=== PATIENT | male | born 1990 | race Caucasian/White ===

== ENCOUNTER 2018-10-08 21:36 | Emergency (ER) | payer OTHER ==
[~2018-10-08] VITALS: Ht 172.7 cm; Wt 92.5 kg
[2018-10-08 21:54] VITALS: BP 140/103; Ht 172.7 cm; Wt 92.5 kg
== END 2018-10-08 23:57 | disposition left against medical advice (07) ==
LOC: ED 21:36
DX: Z53.21 Procedure and treatment not carried out due to patient leaving prior to being seen by health care provider (principal)

== ENCOUNTER 2018-10-09 12:33 | Emergency (ER) | payer OTHER ==
[~2018-10-09] VITALS: Ht 172.7 cm; Wt 92.1 kg
[2018-10-09 13:14] VITALS: Ht 172.7 cm; Wt 92.1 kg
[2018-10-09 15:13] VITALS: BP 127/82
== END 2018-10-09 15:13 | disposition home or self-care (01) ==
LOC: ED 12:33
DX: S90.562A Insect bite (nonvenomous), left ankle, initial encounter (principal); B35.3 Tinea pedis; F17.210 Nicotine dependence, cigarettes, uncomplicated; W57.XXXA Bitten or stung by nonvenomous insect and other nonvenomous arthropods, initial encounter; Y93.89 Activity, other specified; Y92.89 Other specified places as the place of occurrence of the external cause; Y99.8 Other external cause status
CPT/HCPCS: 90715; 99406; J0696

== ENCOUNTER 2019-03-10 00:43 | Emergency (ER) | payer OTHER ==
[~2019-03-10] VITALS: Ht 172.7 cm; Wt 1002.0 kg
[2019-03-10 00:49] VITALS: Ht 172.7 cm; Wt 1002.0 kg
[2019-03-10 02:27] LABS: CALCIUM 8.5 mg/dL (8.5-10.1); CARBON DIOXIDE 25.3 mmol/L (21-32); CHLORIDE SERUM 106 mmol/L (98-107); CREATININE SERUM 1.1 mg/dL (0.7-1.3); GFR1 > 60 mL/min; GLUCOSE SERUM 110 mg/dL (74-106); PLATELET COUNT 271 x10^3mcL (130-400); POTASSIUM SERUM 3.7 mmol/L (3.5-5.1); RED CELL DISTRIBUTION WIDTH 13.3 % (11.5-14.5); SODIUM SERUM 142 mmol/L (136-145)
[2019-03-10 02:43] LABS: ALBUMIN 3.6 g/dL (3.4-5.0); ALKALINE PHOSPHATASE 78 U/L (46-116); ALT/SGPT 35 U/L (16-63); AST/SGOT 15 U/L (15-37); BILIRUBIN TOTAL 0.75 mg/dL (0.20-1.00); TOTAL PROTEIN, SERUM 6.7 g/dL (6.4-8.2)
[2019-03-10 02:59] LABS: BAND NEUTROPHIL 5 % (0-10); MONOCYTE 5 % (0-7); SEGMENTED NEUTROPHILS 60 % (37-75); rbc morphology (normal/abnorm) NORMAL (NORMAL)
[2019-03-10 03:00] LABS: PLATELET MORPHOLOGY PLATELETS NORMAL
[2019-03-10 05:01] VITALS: BP 111/49
== END 2019-03-10 05:01 | disposition home or self-care (01) ==
LOC: ED 00:43
PROVIDERS: Emergency Medicine
DX: N20.0 Calculus of kidney (principal)
CPT/HCPCS: J1885; J2270; J7030

== ENCOUNTER 2020-03-10 14:38 | Emergency (ER) | payer OTHER ==
[~2020-03-10] VITALS: Ht 172.7 cm; Wt 98.0 kg
[2020-03-10 14:48] VITALS: Ht 172.7 cm; Wt 98.0 kg
[2020-03-10 16:39] VITALS: BP 135/89
== END 2020-03-10 16:44 | disposition home or self-care (01) ==
LOC: ED 14:38
DX: S02.609A Fracture of mandible, unspecified, initial encounter for closed fracture (principal); Y04.8XXA Assault by other bodily force, initial encounter; Y93.89 Activity, other specified; Y92.89 Other specified places as the place of occurrence of the external cause; Y99.8 Other external cause status
CPT/HCPCS: 90715; J0690; J3010